=== PATIENT | male | born 1935 | race Caucasian/White ===

== ENCOUNTER 2017-03-23 19:05 | Inpatient (IN) | payer OTHER ==
[~2017-03-23] VITALS: Ht 177.8 cm; Wt 102.2 kg
[2017-03-23] MEDS ORDERED: SODIUM CHLORIDE 0.9% 500ML 500 ML IV STA ×2 (19:40→21:00)
[2017-03-23] MEDS ORDERED: ACETAMINOPHEN 325 MG TAB PO STA (19:40)
--- NOTE | 2017-03-23 19:48 | EMERGENCY ROOM VISIT NOTE ---
History First contact with patient: 19:29 Chief Complaint: SHORTNESS OF BREATH Stated Complaint: HEAVY BREATHING,CONFUSION,STRONG URINE History of Present Illness The patient is a 82 year old male who presents to the Emergency Room with complaints of a fever for the last 2 days. The fever was as high as 102.4F. The patient has taken ibuprofen with minimal relief of his symptoms. He has also had urinary incontinence and some mild confusion. The patient denies any other infectious symptoms such as cough, nausea, vomiting, headache or abdominal pain. He did not get a flu shot this year. Review of Systems 10 system review performed and negative unless noted in HPI or below Family History Omitted secondary to age Social History Smoking Status: Never Smoker Current/Historical Medications Scheduled Ascorbic Acid (Vitamin C), 1 TAB PO DAILY Coenzyme Q10 (Ubidecarenone) (Co Q-10), 1 TAB PO DAILY Turmeric (Curcuma Longa) (Turmeric), 1 TAB PO BID Vitamin E (Vitamin E), 1 TAB PO DAILY Physical Exam Vital Signs Date Time Temp Pulse Resp B/P (MAP) Pulse Ox O2 Delivery O2 Flow Rate FiO2 03/23/17 20:58 83 24 141/55 94 Nasal Cannula 2.0 03/23/17 20:46 Nasal Cannula 2.0 03/23/17 19:39 84 03/23/17 19:23 37.8 85 18 120/64 90 Room Air Physical Exam VITALS: Vitals are noted on the nurse's note and reviewed by myself. Vital signs stable. GENERAL: 82-year-old male, flushed. Nondiaphoretic. SKIN: The skin was without rashes, erythema, edema, or bruising. HEAD: Normocephalic atraumatic. EYES: Pupils equal round and reactive to light and accommodation. Conjunctivae without injection, sclerae without icterus. Extraocular movements intact. MOUTH: Mucous membranes dry NECK: Supple without nuchal rigidity. No lymphadenopathy. Cervical spine is nontender. No JVD. HEART: Regular rate and rhythm without murmurs gallops or rubs. LUNGS: Clear to auscultation bilaterally without wheezes, rales or rhonchi. No accessory muscle use. ABDOMEN: Reducible ventral hernia noted. Positive bowel sounds x 4.Soft, nontender, without organomegaly. No guarding or rebound tenderness. MUSCULOSKELETAL: +1 pitting edema without any erythema, tenderness or warmth appreciated in the lower extremities bilaterally. Strength 5/5 throughout. NEURO: Patient was alert and oriented to person place and time. He is confused about the president. Answering most questions appropriately. Medical Decision & Procedures ER Provider Diagnostic Interpretation: CXR IMPRESSION: 1. Cardiomegaly and bibasilar atelectasis with no acute cardiopulmonary abnormality. 2. Question a subcentimeter nodule versus artifact in the right upper lobe. Follow-up with dedicated PA and lateral examination is recommended. Electronically signed by: Judd Shell M.D. 03/23/2017 8:16 PM Dictated Date/Time: 03/23/2017 8:14 PM Laboratory Results 03/23/17 20:15 Red Blood Count 4.19, Mean Corpuscular Volume 94.0, Mean Corpuscular Hemoglobin 31.7, Mean Corpuscular Hemoglobin Concent 33.8, Mean Platelet Volume 10.0 03/23/17 20:15 Test 03/23/17 20:15 03/23/17 20:20 03/23/17 20:31 03/23/17 20:40 White Blood Count 23.69 K/uL (4.8-10.8) Red Blood Count 4.19 M/uL (4.7-6.1) Hemoglobin 13.3 g/dL (14.0-18.0) Hematocrit 39.4 % (42-52) Mean Corpuscular Volume 94.0 fL (80-100) Mean Corpuscular Hemoglobin 31.7 pg (25-34) Mean Corpuscular Hemoglobin Concent 33.8 g/dl (32-36) Platelet Count 200 K/uL (130-400) Mean Platelet Volume 10.0 fL (7.4-10.4) RDW Standard Deviation 47.9 fL (36.4-46.3) RDW Coefficient of Variation 13.9 % (11.5-14.5) Anion Gap 5.0 mmol/L (3-11) Est Creatinine Clear Calc Drug Dose 37.9 ml/min Estimated GFR () 39.7 Estimated GFR (Non- 34.3 BUN/Creatinine Ratio 12.8 (10-20) Calcium Level 8.5 mg/dl (8.5-10.1) Total Bilirubin 2.5 mg/dl (0.2-1) Aspartate Amino Transf (AST/SGOT) 19 U/L (15-37) Alanine Aminotransferase (ALT/SGPT) 26 U/L (12-78) Alkaline Phosphatase 99 U/L (45-117) Total Protein 7.7 gm/dl (6.4-8.2) Albumin 3.2 gm/dl (3.4-5.0) Globulin 4.5 gm/dl (2.5-4.0) Albumin/Globulin Ratio 0.7 (0.9-2) Urine Color ORANGE Urine Appearance CLOUDY (CLEAR) Urine pH 7.0 (4.5-7.5) Urine Specific [place] 1.018 (1.000-1.030) Urine Protein 2+ (NEG) Urine Glucose (UA) NEG (NEG) Urine Ketones NEG (NEG) Urine Occult Blood 2+ (NEG) Urine Nitrite POS (NEG) Urine Bilirubin NEG (NEG) Urine Urobilinogen POS (NEG) Urine Leukocyte Esterase LARGE (NEG) Urine WBC (Auto) >30 /hpf (0-5) Urine RBC (Auto) 10-30 /hpf (0-4) Urine Hyaline Casts (Auto) 1-5 /lpf (0-5) Urine Epithelial Cells (Auto) 0-5 /lpf (0-5) Urine Bacteria (Auto) 4+ (NEG) Lactic Acid Level 1.7 mmol/L (0.4-2.0) Medications Administered Medications (Trade) Dose Ordered Sig/Néstor Route Start Time Stop Time Status Last Admin Dose Admin Sodium Chloride 500 ml @ 999 mls/hr Q31M STAT IV 03/23/17 19:40 03/23/17 20:10 DC 03/23/17 20:55 999 MLS/HR Acetaminophen (Tylenol Tab) 650 mg NOW STAT PO 03/23/17 19:40 03/23/17 19:43 DC 03/23/17 20:56 650 MG Ceftriaxone Sodium (Rocephin Inj) 1 gm NOW STAT IV 03/23/17 20:37 03/23/17 20:38 DC 03/23/17 20:56 1 GM ECG Indication: other Rate (beats per minute): 83 Rhythm: normal sinus Findings: PVC, other (incomplete right bundle branch block. No prior for comparison.) ED Course Patient was seen and examined Vital signs including blood pressure were reviewed medications list was verified with patient Labs were obtained, and a saline lock was established The patient was hydrated with a total of 1 L of normal saline. His workup was reviewed. The patient was ordered Rocephin 1 g IV. The case was discussed with case management in addition to the [facility] service. He will be admitted for further workup. Medical Decision Differential diagnosis: Urinary tract infection, sepsis, respiratory and tract infection, intra-abdominal pathology such as cholecystitis, This patient is an 82-year-old male that presents to the emergency department with complaints of fever and urinary incontinence. The patient's urinalysis appears infected. He has significant leukocytosis with a white count of 23, 000. His creatinine is also elevated at 1.8. I do not have any baseline labs. I do not feel comfortable sending this patient home as he appears septic likely from urinary source. He has not seen a doctor in many years. He lives at home. I did not suspect hospital-acquired infection. He was treated with Rocephin and IV fluids. He'll be admitted for further workup and treatment. This chart was completed in part utilizing [employer] Speech Voice Recognition software. Attempts were made to minimize the grammatical errors, random word insertions, pronoun errors and incomplete sentences. Any formal questions or concerns about the content, text or information contained within the body of this dictation should be directly addressed to the provider for clarification. Medication Reconcilliation Current Medication List: was personally reviewed by me Blood Pressure Screening Patient's blood pressure: Normal blood pressure Consults [facility] Primary Impression: Sepsis Departure Information Referrals Trista Roe (PCP) Patient Instructions My [facility]
--- NOTE | 2017-03-23 20:18 | DIAGNOSTIC IMAGING REPORT ---
SINGLE VIEW CHEST CLINICAL HISTORY: Fever. FINDINGS: An AP, portable, upright chest radiograph is obtained. No prior studies are available for comparison at the time of dictation. The examination is degraded by portable technique, apical lordotic positioning, and patient rotation. The heart is enlarged and there is atherosclerotic calcification of the thoracic aorta. The pulmonary vasculature is noncongested. There is elevation of the right hemidiaphragm and bibasilar atelectasis. Nonspecific interstitial thickening is noted. No airspace consolidation is seen typical for pneumonia and there is no large pleural effusion. No pneumothorax is seen. There is a questionable 8 mm nodular density in the right upper lobe. The skeletal structures are osteopenic. The bony thorax is grossly intact. Advanced arthritic changes present in the shoulders. Superior subluxation of the humeral heads suggests chronic rotator cuff injury bilaterally. A metallic foreign body is noted in the left axillary region. IMPRESSION: 1. Cardiomegaly and bibasilar atelectasis with no acute cardiopulmonary abnormality. 2. Question a subcentimeter nodule versus artifact in the right upper lobe. Follow-up with dedicated PA and lateral examination is recommended. Electronically signed by: Judd Shell M.D. 03/23/2017 8:16 PM Dictated Date/Time: 03/23/2017 8:14 PM
[2017-03-23] MEDS ORDERED: CEFTRIAXONE SOD INJ 1 GM ADDVIAL IV STA (20:37)
[2017-03-23 20:39] LABS: HEMATOCRIT 39.4 % (42-52); MEAN CORPUSCULAR HEMOGLOBIN 31.7 pg (25-34); MEAN CORPUSCULAR HGB CONC 33.8 g/dl (32-36); PLATELET COUNT 200 K/uL (130-400); RED BLOOD COUNT 4.19 M/uL (4.7-6.1); WHITE BLOOD COUNT 23.69 K/uL (4.8-10.8)
[2017-03-23 20:44] LABS: URINE APPEARANCE CLOUDY (CLEAR); URINE BILIRUBIN NEG (NEG); URINE COLOR ORANGE; URINE EPITHELIAL CELL AUTO 0-5 /lpf (0-5); URINE NITRITE POS (NEG); URINE SPECIFIC GRAVITY 1.018 (1.000-1.030); UROBILINOGEN POS (NEG); ZZUR CULT IF INDIC CLEAN CATCH YES
[2017-03-23 20:46] LABS: MANUAL MICROSCOPIC REQUIRED? NO; REVIEW REQ? NO
[2017-03-23 20:55] LABS: BUN/CREATININE RATIO 12.8 (10-20); CALCIUM 8.5 mg/dl (8.5-10.1); CREATININE 1.8 mg/dl (0.60-1.40); POTASSIUM 3.6 mmol/L (3.5-5.1)
[2017-03-23 20:58] LABS: ALB/GLOB RATIO 0.7 (0.9-2)
[2017-03-23] MEDS ORDERED: COEN75CA PO (21:00)
[2017-03-23] MEDS ORDERED: ASCO500T3 PO (21:00)
[2017-03-23] MEDS ORDERED: TURM1CAP4 PO (21:00)
[2017-03-23] MEDS ORDERED: VITA1TAB4 PO (21:00)
[2017-03-23 21:29] LABS: BASO % 0.1 %; BASO ABS # 0.02 K/uL (0-0.2); COMPLETE YES; IG% 0.4 %; LYMPH % 6.8 %; LYMPH ABS # 1.61 K/uL (1.2-3.4); MONO % 8.8 %; NEUT % 83.9 %
[2017-03-23 22:20] VITALS: Ht 177.8 cm; Wt 102.2 kg
[2017-03-23 22:54] LABS: INFLUENZA A PCR Neg for Influ A (NEG); INFLUENZA B PCR Neg for Influ B (NEG)
--- NOTE | 2017-03-23 23:06 | EMERGENCY ROOM VISIT NOTE ---
ED Visit Note First contact with patient: 19:29 I have personally evaluated this patient examined her and reviewed the pertinent labs and data. I have discussed the case with Janet Knox, the physician [employer] assistant manager and agree with the plan. Please refer to the PA note. This patient comes in after having a fever and not feeling well exam urinary symptoms as well. His says he's been a little more confused at times she feels it is doing better after receiving IV fluids and IV Rocephin here. His white count is elevated at 23 and his urinalysis does suggest a UTI. He had urinary symptoms. I think that he he is likely uroseptic. He has been normotensive while he's been here and has received IV fluids. I do think he needs to be admitted to the hospital for IV antibiotics and further treatment and evaluation of his urosepsis.
[2017-03-23] MEDS ORDERED: ACETAMINOPHEN 325 MG TAB PO PRN (23:15)
[2017-03-23] MEDS ORDERED: ONDANSETRON INJ 2 MG/ML 2 ML VIAL IV PRN (23:15)
[2017-03-23] MEDS ORDERED: MAGNESIUM HYDROXIDE SUSP 30 ML UDC PO PRN (23:15)
[2017-03-23] MEDS ORDERED: ALUMINUM/MAGNESIUM/SIMETH (MAALOX MAX) 30 ML UDC PO PRN (23:15)
[2017-03-23] MEDS ORDERED: POLYETHYLENE (MIRALAX) 17 GM PACK PO PRN (23:15)
--- NOTE | 2017-03-23 23:18 | History and Physical ---
History & Physical Date & Time of Service: Mar 23, 2017 at 23:08 Chief Complaint: Heavy Breathing,Confusion,Strong Urine Primary Care Physician: Trista Roe History of Present Illness Source: patient 82 y/o M who denies a past medical history although he has not been to see a doctor in several years. The pt presents with progressive weakness, fevers, mild confusion and dysuria. He denies SOB, CP< N/V/D. He denies any back pain. Initial labs are notable for a + UA and an elevated creatinine although we do not have a baseline. Past Medical/Surgical History Denies any known medical history Family History DM, heart disease Social History [employer] - continues to work daily Smoking Status: Never Smoker Allergies Coded Allergies: No Known Allergies (Unverified , 03/23/17) Home Medications Scheduled Ascorbic Acid (Vitamin C), 1 TAB PO DAILY Coenzyme Q10 (Ubidecarenone) (Co Q-10), 1 TAB PO DAILY Turmeric (Curcuma Longa) (Turmeric), 1 TAB PO BID Vitamin E (Vitamin E), 1 TAB PO DAILY Review of Systems Constitutional: + fever, + chills, + sweats, + weakness Eyes: No worsening of vision, No eye pain ENT: No hearing loss, No unusual epistaxis, No nasal symptoms Respiratory: No cough, No sputum, No wheezing Cardiovascular: No chest pain, No orthopnea, No PND Abdomen: No pain, No vomiting Musculoskeletal: No joint pain Genitourinary - Male: + dysuria, + urinary frequency, + urinary urgency, No hematuria Neurologic: + weakness, No memory loss, No paralysis Endocrine: + fatigue Hematologic / Lymphatic: No abnormal bleeding/bruising Integumentary: No rash Allergic / Immunologic: No environmental allergies Physical Exam Vital Signs Date Time Temp Pulse Resp B/P (MAP) Pulse Ox O2 Delivery O2 Flow Rate FiO2 03/23/17 23:01 71 03/23/17 22:48 71 17 118/52 93 Nasal Cannula 2.0 03/23/17 22:20 Nasal Cannula 2.0 03/23/17 20:58 83 24 141/55 94 Nasal Cannula 2.0 03/23/17 20:46 Nasal Cannula 2.0 03/23/17 19:39 84 03/23/17 19:23 37.8 85 18 120/64 90 Room Air General Appearance: + pertinent finding (Pleasant , overweight elderly male - fully oriented on admission) Head: normocephalic Eyes: normal inspection ENT: normal ENT inspection, pharynx normal Neck: supple, no JVD Respiratory/Chest: chest non-tender, lungs clear, normal breath sounds Cardiovascular: regular rate, rhythm, no edema, no gallop Abdomen/GI: normal bowel sounds, non tender, soft Back: normal inspection, no CVA tenderness Extremities/Musculoskelatal: normal inspection, no calf tenderness, normal capillary refill Neurologic/Psych: esl teacher II-XII nml as tested, no motor/sensory deficits, alert, oriented x 3 Skin: normal color, warm/dry Diagnostics Laboratory Results Results Past 24 Hours Test 03/23/17 20:15 03/23/17 20:20 03/23/17 20:31 03/23/17 20:40 Range/Units White Blood Count 23.69 4.8-10.8 K/uL Red Blood Count 4.19 4.7-6.1 M/uL Hemoglobin 13.3 14.0-18.0 g/dL Hematocrit 39.4 42-52 % Mean Corpuscular Volume 94.0 80-100 fL Mean Corpuscular Hemoglobin 31.7 25-34 pg Mean Corpuscular Hemoglobin Concent 33.8 32-36 g/dl Platelet Count 200 130-400 K/uL Mean Platelet Volume 10.0 7.4-10.4 fL Neutrophils (%) (Auto) 83.9 % Lymphocytes (%) (Auto) 6.8 % Monocytes (%) (Auto) 8.8 % Eosinophils (%) (Auto) 0.0 % Basophils (%) (Auto) 0.1 % Neutrophils # (Auto) 19.88 1.4-6.5 K/uL Lymphocytes # (Auto) 1.61 1.2-3.4 K/uL Monocytes # (Auto) 2.08 0.11-0.59 K/uL Eosinophils # (Auto) 0.00 0-0.5 K/uL Basophils # (Auto) 0.02 0-0.2 K/uL RDW Standard Deviation 47.9 36.4-46.3 fL RDW Coefficient of Variation 13.9 11.5-14.5 % Immature Granulocyte % (Auto) 0.4 % Immature Granulocyte # (Auto) 0.10 0.00-0.02 K/uL Red Blood Cell Morphology Unremarkable Sodium Level 136 136-145 mmol/L Potassium Level 3.6 3.5-5.1 mmol/L Chloride Level 98 98-107 mmol/L Carbon Dioxide Level 33 21-32 mmol/L Anion Gap 5.0 3-11 mmol/L Blood Urea Nitrogen 23 7-18 mg/dl Creatinine 1.80 0.60-1.40 mg/dl Est Creatinine Clear Calc Drug Dose 37.9 ml/min Estimated GFR () 39.7 Estimated GFR (Non- 34.3 BUN/Creatinine Ratio 12.8 10-20 Random Glucose 128 70-99 mg/dl Calcium Level 8.5 8.5-10.1 mg/dl Total Bilirubin 2.5 0.2-1 mg/dl Aspartate Amino Transf (AST/SGOT) 19 15-37 U/L Alanine Aminotransferase (ALT/SGPT) 26 12-78 U/L Alkaline Phosphatase 99 45-117 U/L Total Protein 7.7 6.4-8.2 gm/dl Albumin 3.2 3.4-5.0 gm/dl Globulin 4.5 2.5-4.0 gm/dl Albumin/Globulin Ratio 0.7 0.9-2 Urine Color ORANGE Urine Appearance CLOUDY CLEAR Urine pH 7.0 4.5-7.5 Urine Specific [place] 1.018 1.000-1.030 Urine Protein 2+ NEG Urine Glucose (UA) NEG NEG Urine Ketones NEG NEG Urine Occult Blood 2+ NEG Urine Nitrite POS NEG Urine Bilirubin NEG NEG Urine Urobilinogen POS NEG Urine Leukocyte Esterase LARGE NEG Urine WBC (Auto) >30 0-5 /hpf Urine RBC (Auto) 10-30 0-4 /hpf Urine Hyaline Casts (Auto) 1-5 0-5 /lpf Urine Epithelial Cells (Auto) 0-5 0-5 /lpf Urine Bacteria (Auto) 4+ NEG Lactic Acid Level 1.7 0.4-2.0 mmol/L Direct Bilirubin 0.6 0-0.2 mg/dl Influenza Type A (RT-PCR) Neg for Influ A NEG Influenza Type B (RT-PCR) Neg for Influ B NEG Microbiology Results 03/23/17 Blood Culture, Received Pending 03/23/17 Blood Culture, Received Pending 03/23/17 Urine Culture, Received Pending Impression Assessment and Plan 82 y/o M who denies a past medical history although he has not been to see a doctor in several years. The pt presents with progressive weakness, fevers, mild confusion and dysuria. He denies SOB, CP, N/V/D. He denies any back pain. Initial labs are notable for a + UA and an elevated creatinine although we do not have a baseline. 1) UTI - sepsis - placed on Ceftriaxone pending cultures, IVF - BP has been stable and disorientation resolved with IVF and Tylenol. 2) Elevated creatinine - presumably acute related to infection - no clinical evidence of pyelonephritis - IVF - recheck BMP AM - further workup if no improvement. 2) Pt has been advised on medical follow up - we cannot confirm occult HTN, however, he has an enlarged heart on CXR. It is advisable that he is worked up for BPH following DC. Full code - Heparin prophylaxis Total time for this admit including review of labs, meds, imaging - discussion with pt , , ER attending - 38 min Level of Care Med/Surg Advanced Directives Existing Living Will: Yes Existing Power of Insole Presser: Yes Resuscitation Status FULL RESUSCITATION VTE Prophylaxis VTE Risk Assessment Done? Y/N: Yes Risk Level: Moderate Given or contraindicated: Unfractionated heparin SQ
[2017-03-24 00:45] VITALS: BP 118/68; PULSE 73; TEMP 36.7; O2SAT 92
[2017-03-24] MEDS: NSS + 20MEQ KCL 1000ML 1,000 ML IV SCH ×2 (02:38→12:32)
[2017-03-24 07:21] LABS: HEMATOCRIT 37.9 % (42-52); MEAN CELL VOLUME 93.3 fL (80-100); MEAN CORPUSCULAR HEMOGLOBIN 31.3 pg (25-34); MEAN CORPUSCULAR HGB CONC 33.5 g/dl (32-36); PLATELET COUNT 175 K/uL (130-400); RED BLOOD COUNT 4.06 M/uL (4.7-6.1); WHITE BLOOD COUNT 18.68 K/uL (4.8-10.8)
[2017-03-24 07:29] LABS: INR 1.2 (0.9-1.1)
[2017-03-24 07:45] VITALS: O2SAT 93
[2017-03-24 07:53] LABS: BUN/CREATININE RATIO 16.1 (10-20); CREATININE 1.6 mg/dl (0.60-1.40); POTASSIUM 3.5 mmol/L (3.5-5.1)
[2017-03-24 08:00] VITALS: BP 156/80; PULSE 82; TEMP 36.8; O2SAT 90
[2017-03-24] MEDS ORDERED: CEFTRIAXONE SOD INJ 500 MG in DEXTROSE 5% 50ML 50 ML IV SCH (08:00)
[2017-03-24 09:19] LABS: ESTIMATED AVERAGE GLUCOSE 131 mg/dl; HA1C FLAG Normal (Normal)
[2017-03-24] MEDS ORDERED: TAMSULOSIN HCL 0.4 MG CAP PO ONE (12:15)
[2017-03-24] MEDS: LACTOBACILLUS ACIDOPHILUS (FLORANEX) TAB PO SCH ×2 (12:31→17:03)
[2017-03-24] MEDS: HYDROCORTISONE HC 2.5% CRM 30GM TUBE EXT SCH ×2 (12:31→20:00)
[2017-03-24] MEDS: HEPARIN SOD 5000 UNIT/0.5 ML CARP SQ SCH ×2 (14:27→21:25)
[2017-03-24 16:00] VITALS: O2SAT 91
[2017-03-24 16:18] VITALS: BP 132/75; PULSE 82; TEMP 36.4; O2SAT 91
--- NOTE | 2017-03-24 18:00 | Progress Note ---
Subjective Date of Service: Mar 24, 2017. Subjective Pt evaluation today including: conversation w/ patient, conversation w/ family (daughter, granddaughter), physical exam, chart review, lab review, review of studies (cxr), review of inpatient medication list Pain: dysuria PO Intake: fair patient reports urinary frequency & urgency, having to void every 15 minutes for the last several hours he reports long-standing hemorrhoids staff report frequent loose stools this am, some w/ mucous - but no blood denies upper abd pain but having suprapubic pain no fever Problem List Medical Problems: (1) Sepsis Status: Acute Review of Systems Respiratory: No shortness of breath, No dyspnea on exertion Cardiac: No chest pain Abdomen: + see HPI, + pain, No nausea, No vomiting Objective Vital Signs Date Time Temp Pulse Resp B/P (MAP) Pulse Ox O2 Delivery O2 Flow Rate FiO2 03/24/17 16:18 36.4 82 18 132/75 (94) 91 Room Air 03/24/17 16:00 91 Room Air 03/24/17 08:00 36.8 82 20 156/80 (105) 90 03/24/17 07:45 93 Room Air 03/24/17 00:45 36.7 73 20 118/68 (85) 92 Room Air 03/24/17 00:00 Room Air 03/23/17 23:33 74 24 119/82 92 03/23/17 23:30 74 24 119/82 92 Nasal Cannula 2.0 03/23/17 23:01 71 03/23/17 22:48 37.1 71 17 118/52 93 Nasal Cannula 2.0 03/23/17 22:20 Nasal Cannula 2.0 03/23/17 20:58 83 24 141/55 94 Nasal Cannula 2.0 03/23/17 20:46 Nasal Cannula 2.0 03/23/17 19:39 84 03/23/17 19:23 37.8 85 18 120/64 90 Room Air Physical Exam General Appearance: no apparent distress, + obese ENT: pharynx normal Neck: no JVD Respiratory/Chest: lungs clear, no respiratory distress, no accessory muscle use Cardiovascular: regular rate, rhythm, no gallop, no murmur Abdomen: normal bowel sounds, soft, no organomegaly, + tenderness (suprapubic region), + mass (palpable bladder in the midline) Extremities: no pedal edema Neurologic/Psychiatric: alert, oriented x 3 Comments: BELL - large external hemorrhoids present - NOT thrombosed. no gross blood. prostate enlarged, boggy, but nontender. no nodules. Laboratory Results Last 24 Hours Test 03/23/17 20:15 03/23/17 20:20 03/23/17 20:31 03/23/17 20:40 White Blood Count 23.69 K/uL Red Blood Count 4.19 M/uL Hemoglobin 13.3 g/dL Hematocrit 39.4 % Mean Corpuscular Volume 94.0 fL Mean Corpuscular Hemoglobin 31.7 pg Mean Corpuscular Hemoglobin Concent 33.8 g/dl Platelet Count 200 K/uL Mean Platelet Volume 10.0 fL Neutrophils (%) (Auto) 83.9 % Lymphocytes (%) (Auto) 6.8 % Monocytes (%) (Auto) 8.8 % Eosinophils (%) (Auto) 0.0 % Basophils (%) (Auto) 0.1 % Neutrophils # (Auto) 19.88 K/uL Lymphocytes # (Auto) 1.61 K/uL Monocytes # (Auto) 2.08 K/uL Eosinophils # (Auto) 0.00 K/uL Basophils # (Auto) 0.02 K/uL RDW Standard Deviation 47.9 fL RDW Coefficient of Variation 13.9 % Immature Granulocyte % (Auto) 0.4 % Immature Granulocyte # (Auto) 0.10 K/uL Red Blood Cell Morphology Unremarkable Sodium Level 136 mmol/L Potassium Level 3.6 mmol/L Chloride Level 98 mmol/L Carbon Dioxide Level 33 mmol/L Anion Gap 5.0 mmol/L Blood Urea Nitrogen 23 mg/dl Creatinine 1.80 mg/dl Est Creatinine Clear Calc Drug Dose 37.9 ml/min Estimated GFR () 39.7 Estimated GFR (Non- 34.3 BUN/Creatinine Ratio 12.8 Random Glucose 128 mg/dl Calcium Level 8.5 mg/dl Total Bilirubin 2.5 mg/dl Aspartate Amino Transf (AST/SGOT) 19 U/L Alanine Aminotransferase (ALT/SGPT) 26 U/L Alkaline Phosphatase 99 U/L Total Protein 7.7 gm/dl Albumin 3.2 gm/dl Globulin 4.5 gm/dl Albumin/Globulin Ratio 0.7 Urine Color ORANGE Urine Appearance CLOUDY Urine pH 7.0 Urine Specific [place] 1.018 Urine Protein 2+ Urine Glucose (UA) NEG Urine Ketones NEG Urine Occult Blood 2+ Urine Nitrite POS Urine Bilirubin NEG Urine Urobilinogen POS Urine Leukocyte Esterase LARGE Urine WBC (Auto) >30 /hpf Urine RBC (Auto) 10-30 /hpf Urine Hyaline Casts (Auto) 1-5 /lpf Urine Epithelial Cells (Auto) 0-5 /lpf Urine Bacteria (Auto) 4+ Lactic Acid Level 1.7 mmol/L Direct Bilirubin 0.6 mg/dl Influenza Type A (RT-PCR) Neg for Influ A Influenza Type B (RT-PCR) Neg for Influ B Test 03/24/17 07:11 White Blood Count 18.68 K/uL Red Blood Count 4.06 M/uL Hemoglobin 12.7 g/dL Hematocrit 37.9 % Mean Corpuscular Volume 93.3 fL Mean Corpuscular Hemoglobin 31.3 pg Mean Corpuscular Hemoglobin Concent 33.5 g/dl RDW Standard Deviation 47.5 fL RDW Coefficient of Variation 13.9 % Platelet Count 175 K/uL Mean Platelet Volume 10.0 fL Prothrombin Time 13.0 SECONDS Prothromb Time International Ratio 1.2 Sodium Level 137 mmol/L Potassium Level 3.5 mmol/L Chloride Level 103 mmol/L Carbon Dioxide Level 25 mmol/L Anion Gap 9.0 mmol/L Blood Urea Nitrogen 26 mg/dl Creatinine 1.60 mg/dl Est Creatinine Clear Calc Drug Dose 42.6 ml/min Estimated GFR () 45.8 Estimated GFR (Non- 39.5 BUN/Creatinine Ratio 16.1 Random Glucose 154 mg/dl Estimated Average Glucose 131 mg/dl Hemoglobin A1c 6.2 % Calcium Level 8.0 mg/dl Magnesium Level 2.0 mg/dl Assessment and Plan 82yo male: 1. UTI - continue rocephin. May have element of prostatitis as well. Follow blood/urine cx's. 2 . urinary retention - 2nd to BPH, UTI, +/- prostatitis. West placed; 800cc of urine in the bladder at time of west insertion. Start flomax. 3. BPH w/ LUTS - flomax 0.4mg daily. 4. external hemorrhoids - anusol HC cream QID. 5. suspected acute kidney injury - improving with IVF. Unsure if he has CKD. BMP am. 6. diarrhea - c. diff negative. Likely abx-associated. Add lactinex. 7. hyperglycemia - a1c c/w pre-T2DM. Will d/w patient. 8. DVT proph - heparin TID. 9. abnormal LFTs - significance of such is not known. Repeat AM. 10. FEN - continue IVF 1 more day; diet as tolerated; BMP am. family updated Continued [facility] stay due to: voiding difficulties, multiple IV medications needed Discharge planning: home
[2017-03-24] MEDS ORDERED: CEFTRIAXONE SOD INJ 1,000 MG in DEXTROSE 5% 50ML 50 ML IV SCH (21:00)
[2017-03-25] MEDS: HYDROCORTISONE HC 2.5% CRM 30GM TUBE EXT SCH ×5 (00:26→23:24)
[2017-03-25 00:35] VITALS: BP 141/76; PULSE 78; TEMP 37; O2SAT 92
[2017-03-25] MEDS ORDERED: PHENAZOPYRIDINE HCL 100 MG TAB PO STA (03:10)
[2017-03-25] MEDS: HEPARIN SOD 5000 UNIT/0.5 ML CARP SQ SCH ×3 (04:53→21:28)
[2017-03-25 07:29] LABS: BASO % 0.1 %; BASO ABS # 0.01 K/uL (0-0.2); COMPLETE YES; EOS % 0.1 %; HEMATOCRIT 37.8 % (42-52); IG% 0.3 %; LYMPH % 12.3 %; LYMPH ABS # 1.42 K/uL (1.2-3.4); MEAN CORPUSCULAR HEMOGLOBIN 30.6 pg (25-34); MEAN CORPUSCULAR HGB CONC 32.5 g/dl (32-36); MEAN PLATELET VOLUME 10.6 fL (7.4-10.4); MONO % 10.6 %; NEUT % 76.6 %; PLATELET COUNT 190 K/uL (130-400); RED BLOOD COUNT 4.02 M/uL (4.7-6.1); WHITE BLOOD COUNT 11.57 K/uL (4.8-10.8)
[2017-03-25 07:59] LABS: BUN/CREATININE RATIO 20.2 (10-20); CREATININE 1.7 mg/dl (0.60-1.40); POTASSIUM 3.8 mmol/L (3.5-5.1)
[2017-03-25 08:00] VITALS: O2SAT 92
[2017-03-25] MEDS: LACTOBACILLUS ACIDOPHILUS (FLORANEX) TAB PO SCH ×3 (08:06→19:03)
[2017-03-25] MEDS: TAMSULOSIN HCL 0.4 MG CAP PO SCH (08:06)
[2017-03-25 08:13] LABS: ALB/GLOB RATIO 0.7 (0.9-2)
[2017-03-25 08:20] VITALS: BP 127/72; PULSE 59; TEMP 36.4; O2SAT 92
[2017-03-25 18:47] VITALS: BP 135/67; PULSE 68; TEMP 36.9; O2SAT 90
[2017-03-25 20:37] VITALS: BP 151/62; PULSE 65
[2017-03-25] MEDS: CEPHALEXIN MONOHYDRATE 500 MG CAP PO SCH (21:26)
[2017-03-25 23:52] VITALS: BP 132/69; PULSE 59; TEMP 36.9; O2SAT 94
[2017-03-26] MEDS: HEPARIN SOD 5000 UNIT/0.5 ML CARP SQ SCH (05:29)
[2017-03-26] MEDS: HYDROCORTISONE HC 2.5% CRM 30GM TUBE EXT SCH ×2 (05:31→11:33)
--- NOTE | 2017-03-26 06:24 | Progress Note ---
Subjective Date of Service: Mar 25, 2017. Subjective Pt evaluation today including: conversation w/ patient, conversation w/ family ( at bedside), physical exam, chart review, lab review, review of inpatient medication list Pain: had mild penile pain last pm - now resolved PO Intake: normal/improved Voiding: west catheter in place feels "much better" today no major complaints denies dyspnea, cp, abd pain he is reporting some mild blood with wiping from his hemorrhoids Problem List Medical Problems: (1) Sepsis Status: Acute Review of Systems Constitutional: No fever, No chills Respiratory: No cough, No sputum, No wheezing, No shortness of breath, No dyspnea on exertion Cardiac: No chest pain, No edema Abdomen: + GI bleeding (see HPI), No pain, No nausea, No vomiting, No diarrhea Objective Vital Signs Date Time Temp Pulse Resp B/P (MAP) Pulse Ox O2 Delivery O2 Flow Rate FiO2 03/25/17 20:37 65 151/62 (91) 03/25/17 18:47 36.9 68 18 135/67 (89) 90 Room Air 03/25/17 17:08 Room Air 03/25/17 11:36 36.4 59 20 92 Room Air 03/25/17 08:20 36.4 59 20 127/72 (90) 92 03/25/17 08:00 92 Room Air 03/25/17 00:35 37.0 78 20 141/76 (97) 92 Room Air 03/25/17 00:00 Room Air Physical Exam General Appearance: no apparent distress, + obese ENT: pharynx normal Neck: no JVD Respiratory/Chest: lungs clear, no respiratory distress, no accessory muscle use Cardiovascular: regular rate, rhythm, no gallop, no murmur Abdomen: normal bowel sounds, non tender, soft, no organomegaly Extremities: no pedal edema Neurologic/Psychiatric: alert, oriented x 3 Laboratory Results Last 24 Hours Test 03/25/17 06:53 White Blood Count 11.57 K/uL Red Blood Count 4.02 M/uL Hemoglobin 12.3 g/dL Hematocrit 37.8 % Mean Corpuscular Volume 94.0 fL Mean Corpuscular Hemoglobin 30.6 pg Mean Corpuscular Hemoglobin Concent 32.5 g/dl Platelet Count 190 K/uL Mean Platelet Volume 10.6 fL Neutrophils (%) (Auto) 76.6 % Lymphocytes (%) (Auto) 12.3 % Monocytes (%) (Auto) 10.6 % Eosinophils (%) (Auto) 0.1 % Basophils (%) (Auto) 0.1 % Neutrophils # (Auto) 8.86 K/uL Lymphocytes # (Auto) 1.42 K/uL Monocytes # (Auto) 1.23 K/uL Eosinophils # (Auto) 0.01 K/uL Basophils # (Auto) 0.01 K/uL RDW Standard Deviation 47.6 fL RDW Coefficient of Variation 13.8 % Immature Granulocyte % (Auto) 0.3 % Immature Granulocyte # (Auto) 0.04 K/uL Sodium Level 142 mmol/L Potassium Level 3.8 mmol/L Chloride Level 109 mmol/L Carbon Dioxide Level 28 mmol/L Anion Gap 5.0 mmol/L Blood Urea Nitrogen 34 mg/dl Creatinine 1.70 mg/dl Est Creatinine Clear Calc Drug Dose 40.1 ml/min Estimated GFR () 42.6 Estimated GFR (Non- 36.7 BUN/Creatinine Ratio 20.2 Random Glucose 160 mg/dl Calcium Level 8.0 mg/dl Total Bilirubin 0.5 mg/dl Aspartate Amino Transf (AST/SGOT) 14 U/L Alanine Aminotransferase (ALT/SGPT) 18 U/L Alkaline Phosphatase 76 U/L Total Protein 6.3 gm/dl Albumin 2.5 gm/dl Globulin 3.8 gm/dl Albumin/Globulin Ratio 0.7 Assessment and Plan 82yo male: 1. sepsis 2nd to e. coli UTI - stop rocephin. Change to keflex 500mg BID. May have element of prostatitis as well. Plan 14 day course of Rx. Blood cx's negative. 2 . urinary retention - 2nd to BPH, UTI, +/- prostatitis. West placed; 800cc of urine in the bladder at time of west insertion earlier this stay. Flomax initiated. Would d/c home with west and keep for 1 week. Then f/u with urology for voiding trial. West teaching done 03/25/17. 3. BPH w/ LUTS - flomax 0.4mg daily. 4. external hemorrhoids - anusol HC cream QID. 5. suspected acute kidney injury vs unknown stage of CKD - renal u/s pending. BMP in am to reassess creatinine. 6. diarrhea - c. diff negative. Likely abx-associated. Added lactinex. 7. hyperglycemia - a1c c/w pre-T2DM. This wasl d/w patient and his family. Pressure Tester Operator consult for nutritional counseling appreciated. 8. DVT proph - heparin TID. 9. abnormal LFTs - significance of such is not known. Repeat resolved. 10. FEN - fluids stopped, eating better, lytes stable. updated PT, OT have cleared for home home PT/OT recommended rolling walker recommended at discharge will ask nurse navigator for the following- 1. urology f/u in 1 week for west care/voiding trial 2. NEW PCP at [place] [facility] - within 1 week d/c on Sunday Continued [facility] stay due to: voiding difficulties Discharge planning: home
[2017-03-26] MEDS: TAMSULOSIN HCL 0.4 MG CAP PO SCH (07:13)
[2017-03-26] MEDS: CEPHALEXIN MONOHYDRATE 500 MG CAP PO SCH (07:13)
[2017-03-26] MEDS: LACTOBACILLUS ACIDOPHILUS (FLORANEX) TAB PO SCH ×2 (07:13→11:33)
--- NOTE | 2017-03-26 07:22 | DIAGNOSTIC IMAGING REPORT ---
ULTRASOUND KIDNEYS AND BLADDER CLINICAL HISTORY: Elevated serum creatinine. COMPARISON STUDY: No priors. TECHNIQUE: Real-time, grayscale, and color flow sonography of the kidneys and bladder is performed. Images are reviewed in the transverse and longitudinal planes. FINDINGS: Kidneys: The kidneys demonstrate cortical atrophy. The right kidney measures 10.2 x 5.1 x 5.2 cm and the left kidney measures 10.9 x 4.5 x 5.8 cm. There is no hydronephrosis. No shadowing renal calculi are identified. Small parapelvic cysts are suggested on the left. There is no sonographic evidence of contour deforming renal mass lesion. Trace a nonspecific left-sided perinephric fluid is noted. Bladder: The bladder is decompressed around a Cordon catheter and could not be evaluated. Ureteral jets were not seen. The prostate gland is markedly enlarged and heterogeneous. There is median lobe hypertrophy. IMPRESSION: 1. The kidneys demonstrate cortical atrophy and are without hydronephrosis. 2. There is trace nonspecific left-sided perinephric fluid. 3. The bladder was decompressed around a Cordon catheter and could not be assessed. Electronically signed by: Judd Shell M.D. 03/26/2017 7:21 AM Dictated Date/Time: 03/26/2017 7:19 AM
[2017-03-26 07:39] VITALS: BP 122/54; PULSE 67; TEMP 36.5; O2SAT 91
[2017-03-26 07:45] LABS: BUN/CREATININE RATIO 20.7 (10-20); CALCIUM 7.9 mg/dl (8.5-10.1); CREATININE 1.5 mg/dl (0.60-1.40); POTASSIUM 3.6 mmol/L (3.5-5.1)
[2017-03-26 13:30] VITALS: BP 122/54; PULSE 67; TEMP 36.5; O2SAT 91
[2017-03-26] MEDS ORDERED: FLM4 PO (13:30)
[2017-03-26] MEDS ORDERED: KFL500 PO (13:30)
[2017-03-26] MEDS ORDERED: LCTX PO (13:30)
[2017-03-26] MEDS ORDERED: HYDR2.5C37 TOP (13:30)
--- NOTE | 2017-03-26 13:46 | Discharge Instructions ---
Discharge Instructions Date of Service Mar 26, 2017. Admission Reason for Admission: Sepsis, Uti Discharge Discharge Diagnosis / Problem: Urinary tract infection with sepsis Discharge Goals Goal(s): Decrease discomfort, Increase independence, Diagnostic testing, Therapeutic intervention Activity Recommendations Activity Limitations: resume your previous activity . Instructions / Follow-Up Instructions / Follow-Up You were admitted to hospital with an urinary tract infection with evidence of some decreased ability to void. Your urine grew a bug called E.coli, and as such you were started on an antibiotic called Keflex which you will take twice daily for 12 more days once home. Please complete all of the medication even if you no longer have any issues from a urine standpoint. Floranex is a probiotic to keep your stools firm while on antibiotics. Additionally, for your prostate, in order to help with voiding, a medication called Flomax has also been prescribed to help you void more easily. You will have follow up with urology to do a trial removal of the bladder catheter and/or further catheter management recommendations. Dr. Flores, urologist Tuesday April 04, 2017 @ 2:40 pm (please arrive at 2:20pm) [address] [place] [address] Anusol HC cream is a medication to help with hemorrhoid. Please continue the medications for the duration that you have pain symptoms. You may resume all other home medications as previous For your pre-diabetes, remember lifestyle changes are important to keep your self healthy. Follow your dietitian's advice for best outcome. Ideally, more vegetables and less starchy potatoes and pastas are recommended. Staying active is also important. Home PT is recommended and will be arranged for you. Use your rolling walker to ambulate safely! It is advisable that you follow up with your new PCP for continued care. Dr. Luis Daniel Scott (colleague to Carmina Roe) Thursday, April 03, 2014 @ 9:[address] [place] [address] Thank you for allowing us to participate in your care. Current Hospital Diet Patient's current hospital diet: Regular Diet Discharge Diet Recommended Diet: Regular Diet Pending Studies Studies pending at discharge: no Laboratory Results Hemoglobin A1c Test 03/24/17 07:11 Range/Units Estimated Average Glucose 131 mg/dl Hemoglobin A1c 6.2 H 4.5-5.6 % Medical Emergencies . Who to Call and When: Medical Emergencies: If at any time you feel your situation is an emergency, please call 911 immediately. . Non-Emergent Contact Non-Emergency issues call your: Primary Care Provider, Urologist . . "Provider Documentation" section prepared by Jennifer Issa. . VTE Core Measure Inpt VTE Proph given/why not?: Unfractionated heparin SQ Resident Tracking Resident Involvement: Resident Care Provided Care Provided: Adult Hospital Medicine
--- NOTE | 2017-03-26 13:58 | Discharge Summary ---
Discharge Summary Date of Service Mar 26, 2017. (Alka. Issa MD) Discharge Summary Admission Date: Mar 23, 2017 at 23:04 Discharge Date: Mar 26, 2017 Discharge Disposition: Home with services Principal Diagnosis: UTI with sepsis Problems/Secondary Diagnoses: Urinary retention (Alka. Issa MD) Medication Reconciliation New Medications: Hydrocortisone 2.5% (Rectal) (Anusol-Hc 2.5%) 2.5 % Cre 1 APPLN TOP QID for 10 Days, #30 GM 1 Refill Cephalexin Monohydrate (Cephalexin) 500 Mg Cap 500 MG PO BID for 12 Days, #24 CAP Lactobacillus Acidophilus (Floranex) 1 Tab Tab 4 TAB PO TIDM for 12 Days, #36 TAB Tamsulosin HCl (Tamsulosin HCl) 0.4 Mg Cap 0.4 MG PO QAM, #30 CAP 3 Refills Continued Medications: Ascorbic Acid (Vitamin C) Unknown Strength Tab 1 TAB PO DAILY Coenzyme Q10 (Ubidecarenone) (Co Q-10) Unknown Strength Cap 1 TAB PO DAILY, CAP Turmeric (Curcuma Longa) (Turmeric) Unknown Strength Cap 1 TAB PO BID Vitamin E (Vitamin E) Unknown Strength Tab 1 TAB PO DAILY Discharge Exam Patient well, denies acute overnight events. Denies having any fevers, chills, sweats, chest pain, dyspnea, abdominal pain, back pain, nausea, vomiting. Still has Cordon in situ. States his urine has cleared up since initially. Has been stooling appropriately. He is tolerating diet. He is keen for home. Home care plan discussed with patient and his , their questions were answered to their satisfaction. ROS unremarkable except as noted above. Physical Exam: General Appearance: WD/WN Eyes: normal inspection ENT: hearing grossly normal Neck: supple Respiratory/Chest: normal breath sounds, no respiratory distress, no accessory muscle use Cardiovascular: regular rate, rhythm, normal peripheral pulses Abdomen / GI: normal bowel sounds, non tender, soft, + pertinent finding ( Cordon in situ, urine concentrated but otherwise appearing normal) Extremities: no calf tenderness, no pedal edema Neurologic/Psychiatric: alert, normal reflexes, oriented x 3 Skin: normal color, warm/dry, no rash (Alka. Issa MD) Review of Systems: Constitutional: No fever Respiratory: No shortness of breath Cardiovascular: No chest pain Abdomen: No pain Physical Exam: General Appearance: no apparent distress Respiratory/Chest: lungs clear, no respiratory distress Cardiovascular: regular rate, rhythm Abdomen / GI: soft Neurologic/Psychiatric: alert, oriented x 3 (Tania Singh M.D.) Hospital Course 82 y/o M w/o significant pMHx presented with symptoms of sepsis including progressive weakness, fevers, mild confusion and dysuria with initial labs notable for a + UA and an elevated creatinine. Patient empirically started on Rocephin. Cultures revealed dickey-sensitive E.coli. Blood cultures negative. Cordon inserted for urinary retention secondary to BPH. On discharge: Sepsis 2nd to E.coli UTI - transition to PO Keflex 500mg BID for 14 day course total (12 more days) due to possible element of prostatitis. Probiotics to assist with stools. Urinary retention - Cordon in situ. Urology follow up with Dr. Flores March @ 2:40pm for Cordon removal and trial of void and/or further catheter management recommendations. BPH w/ LUTS - Continue Flomax 0.4mg daily. External hemorrhoids - Continue Anusol HC cream QID x 7 days Other issues: Suspected acute kidney injury vs unknown stage of CKD - creatinine improved through out admission, 1.5 on discharge. Renal U/S showed cortical atrophy without hydronephrosis, trace nonspecific left-sided perinephric fluid. Diarrhea - c. diff negative. Likely abx-associated. Improved with Lactinex. Hyperglycemia - Hba1c 6.2, c/w pre-T2DM. Patient and his family aware. Mathematician consult for nutritional counseling, much appreciated by patient. Abnormal LFTs - significance of such is not known. Resolved on repeat labs. DVT proph - heparin TID. Dispo - PT, OT have cleared for discharge with home services. Kimberly iniguez prescribed Follow up with PCP Dr. Luis Daniel Scott (colleague to Carmina Roe) April 03, 2014 @ 9:10 am Total Time Spent: Less than 30 minutes This includes examination of the patient, discharge planning, medication reconciliation, and communication with other providers. (Alka. Issa MD) Resident Physician Supervision Note: I independently interviewed and examined the patient and verified the bazzi history and physical, reviewed labs and image studies, discussed the case with the resident Dr. Issa and agree with the findings and care plan. Total Time Spent: Greater than 30 minutes (35) (Tania Singh M.D.) Discharge Instructions Please refer to the electronic Patient Visit Report (Discharge Instructions) for additional information. (Alka. Issa MD) Additional Copies To Trista Roe; Saulo Flores M.D.; Luis Daniel Scott M.D.
== END 2017-03-26 14:12 | disposition home health service (06) | DRG 872 ==
LOC: C.EDB 19:06 → C.MS4W 23:04 → ENRESERV 23:15
PROVIDERS: ADMIT Internal Medicine; ATTEND Family Medicine
DX: A41.51 Sepsis due to Escherichia coli [E. coli] (principal); N39.0 Urinary tract infection, site not specified; N17.9 Acute kidney failure, unspecified; B96.20 Unspecified Escherichia coli [E. coli] as the cause of diseases classified elsewhere; N18.9 Chronic kidney disease, unspecified; N40.1 Benign prostatic hyperplasia with lower urinary tract symptoms; R33.9 Retention of urine, unspecified; R73.9 Hyperglycemia, unspecified; R94.5 Abnormal results of liver function studies; R19.7 Diarrhea, unspecified; K64.4 Residual hemorrhoidal skin tags; E66.9 Obesity, unspecified; Z68.32 Body mass index [BMI] 32.0-32.9, adult

== ENCOUNTER → 2017-04-09 | Outpatient (CLI) | payer OTHER ==
[~2017-04-09] MED LIST: ASCO500T3 PO; COEN75CA PO; FLM4 PO; HYDR2.5C37 TOP; KFL500 PO; LCTX PO; TURM1CAP4 PO; VITA1TAB4 PO
--- NOTE | 2017-04-09 09:38 | DIAGNOSTIC IMAGING REPORT ---
CHEST 2 VIEWS ROUTINE CLINICAL HISTORY: Abnormal chest x-ray COMPARISON STUDY: 03/23/2017 FINDINGS: The cardiac and mediastinal contours remain stable. There is no failure. There is no lobar consolidation. 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 There is chronic blunting of the left lateral costophrenic angle. Within the right upper lobe, there are 2 small subcentimeter nodules. These are quite dense despite its small size and are felt to be calcified, postinflammatory.[ IMPRESSION: No active disease in the chest. The previously queried subcentimeter right upper lobe nodules are felt to be postinflammatory Electronically signed by: Edmond Maguire M.D. 04/09/2017 9:36 AM Dictated Date/Time: 04/09/2017 9:35 AM
== END | disposition home or self-care (01) ==
LOC: C.RAD1850 09:08
PROVIDERS: ATTEND Nurse Practitioner Family
DX: N40.3 Nodular prostate with lower urinary tract symptoms (principal); N39.0 Urinary tract infection, site not specified; R33.9 Retention of urine, unspecified; R91.8 Other nonspecific abnormal finding of lung field